=== PATIENT | male | born 1975 | race Caucasian/White ===

== ENCOUNTER 2025-04-04 01:19 | Inpatient (IN) | payer OTHER ==
[~2025-04-04] VITALS: Ht 170.2 cm; Wt 82.0 kg
[2025-04-04 01:57] LABS: PLATELET COUNT (AUTO) 357 K/uL (150-450); RED BLOOD CELL COUNT(AUTO) 4.42 MIL/uL (4.50-5.90); RED CELL DISTRIBUTION WIDTH 13.7 % (11.5-14.5); WHITE BLOOD COUNT (AUTO) 12.4 K/uL (4.5-11.0)
[2025-04-04 02:05] LABS: CALCIUM, TOTAL 8.4 mg/dL (8.8-10.5); CREATININE 1.06 mg/dL (0.60-1.30); GLOMERULAR FILTR. RATE CALC > 60 mL/min (>60); GLUCOSE,RANDOM 109 mg/dL (70-110); SODIUM SERUM 135 mmol/L (136-145); UREA NITROGEN, BLOOD 17 mg/dL (7-18)
[2025-04-04 02:12] LABS: ASPARTATE AMINOTRANSFERASE 12.0 U/L (15-37); CREATINE KINASE, TOTAL ONLY 23.0 U/L (39-308); TOTAL PROTEIN, SERUM 6.8 g/dL (6.4-8.2)
[2025-04-04 02:16] LABS: TROPONIN I-HIGH SENSITIVITY 10 ng/L (<76)
[2025-04-04] MEDS: SODIUM CHLORIDE 0.9% 1,000 ML IV ONE (02:17)
[2025-04-04] MEDS: KETOROLAC TROMETHAMINE 30 MG/ML VIAL IVP ONE (02:17)
[2025-04-04] MEDS ORDERED: IOHEXOL 350 MG/ML 100 ML VIAL ONE ×2 (05:34→06:22)
[2025-04-04] MEDS ORDERED: SODIUM CHLORIDE 0.9% 100 ML ONE ×2 (05:35→06:22)
[2025-04-04] MEDS: AMPICILLIN SODIUM/SULBACTAM NA 3 GM in SODIUM CHLORIDE 0.9% 100 ML IV ONE (06:47)
[2025-04-04 07:02] LABS: APPEARANCE,URINE CLEAR (CLEAR); GLUCOSE, URINE (UA) NEGATIVE (NEGATIVE); LEUKOCYTE ESTERASE ,URINE NEGATIVE (NEGATIVE); NITRATE,URINE NEGATIVE (NEGATIVE); OCCULT BLOOD,URINE NEGATIVE (NEGATIVE); SPECIFIC GRAVITIY, URINE 1.023 (1.003-1.030)
[2025-04-04 07:16] LABS: PH,URINE DRUG SCREEN 5.5 (5.0-8.0)
[2025-04-04 07:20] LABS: ALCOHOL, URINE DRUG SCREEN NEGATIVE (NEGATIVE); AMPHET/METH SCREEN,URINE POSITIVE (NEGATIVE); BARBITURATE SCREEN, URINE NEGATIVE (NEGATIVE); CANNABINOID SCREEN,URINE NEGATIVE (NEGATIVE); COCAINE SCREEN,URINE NEGATIVE (NEGATIVE); METHADONE SCREEN, URINE NEGATIVE (NEGATIVE)
[2025-04-04] MEDS ORDERED: LISI-894 PO (11:36)
[2025-04-04 11:47] VITALS: BP 160/94; PULSE 64; RESP 18; TEMP 98.1; O2SAT 98
[2025-04-04] MEDS ORDERED: ONDANSETRON HCL 4 MG/2 ML VIAL IVP PRN (13:00)
[2025-04-04] MEDS ORDERED: BISACODYL 10 MG RECTAL RECTAL SUPPOSITORY PR PRN (13:00)
[2025-04-04 15:24] VITALS: BP 154/103; PULSE 71; RESP 19; TEMP 98.4; O2SAT 98
[2025-04-04] MEDS: HEPARIN SODIUM,PORCINE 5,000 UNITS/ML VIAL SQ SCH (15:25)
[2025-04-04] MEDS: HYDROCODONE/ACETAMINOPHEN 5-325 MG TABLET PO PRN (15:28)
[2025-04-04] MEDS ORDERED: SODIUM CHLORIDE 0.9% 500 ML IV ONE (17:20)
[2025-04-04] MEDS ORDERED: BUPR-344 PO (17:58)
[2025-04-04] MEDS ORDERED: FLUO-418 PO (17:58)
[2025-04-04] MEDS ORDERED: AMPICILLIN SODIUM/SULBACTAM NA 1.5 GM in SODIUM CHLORIDE 0.9% 50 ML IV SCH (18:00)
[2025-04-04] MEDS ORDERED: TRAZ-252 PO (18:03)
[2025-04-04] MEDS: AMPICILLIN SODIUM/SULBACTAM NA 3 GM in SODIUM CHLORIDE 0.9% 100 ML IV SCH (18:20)
[2025-04-04 19:21] VITALS: BP 157/97; PULSE 71; RESP 19; TEMP 98.4; O2SAT 99
[2025-04-04] MEDS: DOCUSATE SODIUM 100 MG CAPSULE PO SCH (20:16)
[2025-04-04] MEDS: ZOLPIDEM TARTRATE 5 MG TABLET PO PRN (20:16)
[2025-04-04] MEDS: MAGNESIUM HYDROXIDE SUSPENSION 30 ML UDCUP PO PRN (20:16)
[2025-04-04 23:09] VITALS: BP 136/86; PULSE 79; RESP 19; TEMP 98.2; O2SAT 94
[2025-04-05 03:20] VITALS: BP 138/87; PULSE 74; RESP 18; TEMP 98.2; O2SAT 94
[2025-04-05 06:17] LABS: CALCIUM, TOTAL 8.5 mg/dL (8.8-10.5); CREATININE 0.90 mg/dL (0.60-1.30); GLOMERULAR FILTR. RATE CALC > 60 mL/min (>60); GLUCOSE,RANDOM 117 mg/dL (70-110); SODIUM SERUM 138 mmol/L (136-145); UREA NITROGEN, BLOOD 14 mg/dL (7-18)
[2025-04-05 06:45] LABS: PLATELET COUNT (AUTO) 322 K/uL (150-450); RED BLOOD CELL COUNT(AUTO) 4.23 MIL/uL (4.50-5.90); RED CELL DISTRIBUTION WIDTH 13.4 % (11.5-14.5); WHITE BLOOD COUNT (AUTO) 10.4 K/uL (4.5-11.0)
[2025-04-05] MEDS ORDERED: LIDOCAINE/PF 1% 30 ML VIAL ONE (08:00)
[2025-04-05 08:02] VITALS: BP 160/102; PULSE 71; RESP 18; TEMP 98; O2SAT 96
[2025-04-05] MEDS: PANTOPRAZOLE SODIUM 40 MG DR TABLET PO SCH (09:00)
[2025-04-05 11:30] VITALS: BP 135/96; PULSE 70; RESP 18; TEMP 98.2; O2SAT 98
[2025-04-05] MEDS: MORPHINE SULFATE 4 MG/ML SYRINGE IVP PRN (15:07)
[2025-04-05] MEDS ORDERED: GADOTERATE MEGLUMINE 10 MMOL/20 ML VIAL IVP ONE (15:19)
[2025-04-05 15:43] VITALS: BP 157/110; PULSE 81; RESP 24; TEMP 98.2; O2SAT 99
[2025-04-05 16:51] LABS: ABG BASE EXCESS -1.3 mmol/L (-2.0-3.0); ABG CARBOXYHEMOGLOBIN 0.4 % (0.5-1.5); ABG HCO3 24.2 mmol/L (21.0-28.0); ABG METHEMOGLOBIN 0.3 % (0.0-1.5); ABG OXYGEN CONTENT 18.6 mL/dL (15.0-23.0); ABG OXYGEN SATURATION 98.5 % (94.0-98.0); ABG OXYHEMOGLOBIN 97.8 % (94.0-98.0); ABG PCO2 31 mmHg (32.0-48.0); ABG PH 7.480 (7.350-7.450); ABG TOTAL HEMOGLOBIN 13.4 G/dL (13.5-17.5); ALLEN TEST, BLOOD GAS Positive; FLOW, BLOOD GAS 0.00 L/min (0.00-15.00); FRACTIONATED INSPIRED OXYGEN 21.0 % (21-100.0); PO2, ARTERIAL BG 115.5 mmHg (83.0-108.0); SITE, BLOOD GAS RT RADIAL; SOURCE, BLOOD GAS ARTERIAL; TEMPERATURE, FAHRENHEIT, BG 98.2 FAHREN (96.0-98.6)
[2025-04-05 16:52] LABS: O2 DEVICE,BLOOD GAS ROOM AIR (ROOM AIR)
[2025-04-05 20:13] VITALS: BP 158/106; PULSE 95; RESP 20; TEMP 99.7; O2SAT 97
[2025-04-06] VITALS (8 sets, daily range): BP systolic 145–155; BP diastolic 96–114; PULSE 75–101; RESP 18–20; TEMP 98.4–99.5; O2SAT 94–98
[2025-04-06] MEDS ORDERED: 0.9% SODIUM CHLORIDE 5 ML NEB SOLUTION NEB ONE (14:33)
[2025-04-06] MEDS: ALBUTEROL SULFATE 2.5 MG/0.5 ML NEB SOLUTION NEB PRN (14:36)
[2025-04-06] MEDS: MORPHINE SULFATE 4 MG/ML SYRINGE IVP PRN (18:22)
[2025-04-07] VITALS (11 sets, daily range): BP systolic 122–146; BP diastolic 82–97; PULSE 77–91; RESP 18–20; TEMP 98.4–100.6; O2SAT 93–99
[2025-04-07] MEDS: ACETAMINOPHEN 325 MG TABLET PO PRN (00:49)
[2025-04-07 06:51] LABS: PLATELET COUNT (AUTO) 340 K/uL (150-450); RED BLOOD CELL COUNT(AUTO) 4.43 MIL/uL (4.50-5.90); RED CELL DISTRIBUTION WIDTH 13.6 % (11.5-14.5); WHITE BLOOD COUNT (AUTO) 19.7 K/uL (4.5-11.0)
[2025-04-07 07:00] LABS: CALCIUM, TOTAL 8.9 mg/dL (8.8-10.5); CREATININE 0.93 mg/dL (0.60-1.30); GLOMERULAR FILTR. RATE CALC > 60 mL/min (>60); GLUCOSE,RANDOM 111 mg/dL (70-110); SODIUM SERUM 134 mmol/L (136-145); UREA NITROGEN, BLOOD 10 mg/dL (7-18)
[2025-04-07 07:13] LABS: ASPARTATE AMINOTRANSFERASE 31 U/L (15-37); TOTAL PROTEIN, SERUM 6.8 g/dL (6.4-8.2)
[2025-04-07 10:07] LABS: S PNEUMO SOURCE Urine; STREP PNEUMONIAE AG URINE Negative (Negative)
[2025-04-07 11:07] LABS: LEGIONELLA PNEUMO AG URINE Negative (Negative)
[2025-04-07] MEDS ORDERED: SODIUM CHLORIDE 0.9% 500 ML IV ONE (23:08)
[2025-04-08] VITALS (12 sets, daily range): BP systolic 131–150; BP diastolic 89–101; PULSE 74–96; RESP 17–20; TEMP 98.4–100; O2SAT 95–99
[2025-04-08 06:36] LABS: PLATELET COUNT (AUTO) 349 K/uL (150-450); RED BLOOD CELL COUNT(AUTO) 4.13 MIL/uL (4.50-5.90); RED CELL DISTRIBUTION WIDTH 13.7 % (11.5-14.5); WHITE BLOOD COUNT (AUTO) 16.2 K/uL (4.5-11.0)
[2025-04-09] VITALS (11 sets, daily range): BP systolic 132–157; BP diastolic 93–101; PULSE 73–86; RESP 18–22; TEMP 97.7–100.6; O2SAT 95–99
[2025-04-09 06:33] LABS: PLATELET COUNT (AUTO) 383 K/uL (150-450); RED BLOOD CELL COUNT(AUTO) 3.80 MIL/uL (4.50-5.90); RED CELL DISTRIBUTION WIDTH 13.7 % (11.5-14.5); WHITE BLOOD COUNT (AUTO) 12.9 K/uL (4.5-11.0)
[2025-04-09] MEDS: LINEZOLID 600 MG TABLET PO SCH (12:37)
[2025-04-10] VITALS (8 sets, daily range): BP systolic 155–157; BP diastolic 95–99; PULSE 74–92; RESP 18–20; TEMP 99.1–99.7; O2SAT 95–99
[2025-04-10] MEDS: GABAPENTIN 100 MG CAPSULE PO SCH (13:10)
[2025-04-11] VITALS (9 sets, daily range): BP systolic 140–154; BP diastolic 98–106; PULSE 72–97; RESP 18–22; TEMP 97.9–99.9; O2SAT 94–99
[2025-04-11 07:01] LABS: PLATELET COUNT (AUTO) 451 K/uL (150-450); RED BLOOD CELL COUNT(AUTO) 4.00 MIL/uL (4.50-5.90); RED CELL DISTRIBUTION WIDTH 14.0 % (11.5-14.5); WHITE BLOOD COUNT (AUTO) 13.8 K/uL (4.5-11.0)
[2025-04-11 07:22] LABS: ASPARTATE AMINOTRANSFERASE 25 U/L (15-37); CALCIUM, TOTAL 9.0 mg/dL (8.8-10.5); CREATININE 0.89 mg/dL (0.60-1.30); GLOMERULAR FILTR. RATE CALC > 60 mL/min (>60); GLUCOSE,RANDOM 105 mg/dL (70-110); SODIUM SERUM 137 mmol/L (136-145); TOTAL PROTEIN, SERUM 6.6 g/dL (6.4-8.2); UREA NITROGEN, BLOOD 9 mg/dL (7-18)
[2025-04-11 07:44] LABS: LACTATE DEHYDROGENASE 217 U/L (85-227)
[2025-04-12 03:46] VITALS: BP 144/99; PULSE 79; RESP 18; TEMP 98.6; O2SAT 95
[2025-04-12 06:45] LABS: PLATELET COUNT (AUTO) 526 K/uL (150-450); RED BLOOD CELL COUNT(AUTO) 4.08 MIL/uL (4.50-5.90); RED CELL DISTRIBUTION WIDTH 14.0 % (11.5-14.5); WHITE BLOOD COUNT (AUTO) 16.2 K/uL (4.5-11.0)
[2025-04-12 08:30] VITALS: BP 155/94; PULSE 78; RESP 18; TEMP 98.6; O2SAT 96
[2025-04-12 09:00] VITALS: PULSE 77; RESP 18; O2SAT 94
[2025-04-12 09:11] VITALS: PULSE 75; RESP 18; O2SAT 95
[2025-04-12] MEDS ORDERED: IOHEXOL 350 MG/ML 100 ML VIAL ONE (09:46)
[2025-04-12] MEDS ORDERED: 0.9% SODIUM CHLORIDE 10 ML SYRINGE IVP ONE (09:46)
[2025-04-12] MEDS ORDERED: SODIUM CHLORIDE 0.9% 100 ML ONE (09:47)
[2025-04-12] MEDS ORDERED: FentaNYL CITRATE PF 100 MCG/2 ML VIAL ONE (09:56)
[2025-04-12] MEDS ORDERED: LIDOCAINE/PF 1% 30 ML VIAL ONE (09:57)
[2025-04-12] MEDS ORDERED: MIDAZOLAM HCL 2 MG/2 ML VIAL ONE (09:57)
[2025-04-12] MEDS: LIDOCAINE 1% 30 ML/SOD BICARB 8.4% 4 ML SQ ONE (11:51)
[2025-04-12] MEDS: FentaNYL CITRATE PF 100 MCG/2 ML VIAL IVP ONE (11:52)
[2025-04-12] MEDS: MIDAZOLAM HCL 2 MG/2 ML VIAL IVP ONE (11:52)
[2025-04-12 12:06] LABS: SPECIMENTYPE,BODY FLUID THORAV
[2025-04-12] MEDS ORDERED: PALI3TAB14 PO (15:17)
[2025-04-12 16:09] VITALS: BP 126/86; PULSE 82; RESP 18; TEMP 99.3; O2SAT 100
[2025-04-12 17:44] LABS: APPEARANCE,UNSPUN,BODY FLUID TURBID (CLEAR)
[2025-04-12 17:50] LABS: APPEARANCE,SPUN,BODY FLUID CLEAR (CLEAR)
[2025-04-12 17:51] LABS: BASOPHILS,BODY FLUID 0 %; BODY FLUID RBC 470.0 /cu. mm.; COLOR,BODY FLUID DARK YELLOW (LT YELLOW); EOSINOPHILS,BF (ANAL) 0 %; LYMPHOCYTES,BODY FLUID 75 %; MONOCYTES,BODY FLUID 0 %; NEUTROPHILS,BODY FLUID 25 %; PH, BODY FLUID 8.0; TOTAL VOLUME,BODY FLUID 20 mL; WBC, BODY FLUID 60 /cu. mm.
[2025-04-12 20:13] VITALS: BP 140/86; PULSE 81; RESP 18; TEMP 99.3; O2SAT 97
[2025-04-13 03:09] VITALS: BP 144/95; PULSE 83; RESP 16; TEMP 99.3; O2SAT 95
[2025-04-13 07:04] VITALS: PULSE 88; RESP 18; O2SAT 96
[2025-04-13 07:21] LABS: PLATELET COUNT (AUTO) 487 K/uL (150-450); RED BLOOD CELL COUNT(AUTO) 3.98 MIL/uL (4.50-5.90); RED CELL DISTRIBUTION WIDTH 14.0 % (11.5-14.5); WHITE BLOOD COUNT (AUTO) 15.4 K/uL (4.5-11.0)
[2025-04-13 07:25] VITALS: BP 127/86; PULSE 72; RESP 18; TEMP 98.6; O2SAT 96
[2025-04-13 07:27] LABS: ASPARTATE AMINOTRANSFERASE 33 U/L (15-37); CALCIUM, TOTAL 8.4 mg/dL (8.8-10.5); CREATININE 0.96 mg/dL (0.60-1.30); GLOMERULAR FILTR. RATE CALC > 60 mL/min (>60); GLUCOSE,RANDOM 134 mg/dL (70-110); SODIUM SERUM 138 mmol/L (136-145); TOTAL PROTEIN, SERUM 6.3 g/dL (6.4-8.2); UREA NITROGEN, BLOOD 7 mg/dL (7-18)
[2025-04-13 14:07] LABS: GLUCOSE, BODY FLUID,REF 94 mg/dL; LDH,BODY FLUID,REF 377 IU/L
[2025-04-13 15:18] VITALS: BP 142/95; PULSE 82; RESP 18; TEMP 98.1; O2SAT 99
[2025-04-13 20:15] VITALS: BP 140/95; PULSE 79; RESP 18; TEMP 98.6; O2SAT 99
[2025-04-13 20:17] VITALS: PULSE 75; RESP 18; O2SAT 99
[2025-04-14] VITALS (7 sets, daily range): BP systolic 128–156; BP diastolic 85–98; PULSE 68–80; RESP 18–20; TEMP 98.1–98.8; O2SAT 96–98
[2025-04-14 07:26] LABS: PLATELET COUNT (AUTO) 568 K/uL (150-450); RED BLOOD CELL COUNT(AUTO) 4.04 MIL/uL (4.50-5.90); RED CELL DISTRIBUTION WIDTH 14.0 % (11.5-14.5); WHITE BLOOD COUNT (AUTO) 14.8 K/uL (4.5-11.0)
[2025-04-14 07:55] LABS: CALCIUM, TOTAL 8.5 mg/dL (8.8-10.5); CREATININE 0.75 mg/dL (0.60-1.30); GLOMERULAR FILTR. RATE CALC > 60 mL/min (>60); GLUCOSE,RANDOM 99 mg/dL (70-110); SODIUM SERUM 136 mmol/L (136-145); UREA NITROGEN, BLOOD 11 mg/dL (7-18)
[2025-04-14] MEDS ORDERED: BuPROPion HCL XL 150 MG ER TABLET PO SCH (09:00)
[2025-04-14] MEDS: ALTEPLASE 2 MG VIAL/STERILE WATER IVCATH ONE (12:15)
[2025-04-14] MEDS ORDERED: SODIUM CHLORIDE 0.9% 1,000 ML ONE (12:55)
[2025-04-15 03:19] VITALS: BP 142/88; PULSE 69; RESP 18; TEMP 98.6; O2SAT 98
[2025-04-15 04:00] VITALS: BP 141/94; PULSE 61; RESP 18; TEMP 98.1; O2SAT 96
[2025-04-15 09:53] VITALS: BP 141/95; PULSE 76; RESP 18; TEMP 98.3; O2SAT 96
[2025-04-15 16:40] VITALS: BP 139/90; PULSE 68; RESP 18; TEMP 98.4; O2SAT 97
[2025-04-15 19:37] VITALS: BP 126/84; PULSE 72; RESP 18; TEMP 98.6; O2SAT 98
[2025-04-16 06:12] VITALS: BP 123/74; PULSE 72; RESP 18; TEMP 98.6; O2SAT 98
[2025-04-16 06:46] LABS: PLATELET COUNT (AUTO) 582 K/uL (150-450); RED BLOOD CELL COUNT(AUTO) 4.34 MIL/uL (4.50-5.90); RED CELL DISTRIBUTION WIDTH 13.9 % (11.5-14.5); WHITE BLOOD COUNT (AUTO) 12.1 K/uL (4.5-11.0)
[2025-04-16 06:59] LABS: CALCIUM, TOTAL 8.8 mg/dL (8.8-10.5); CREATININE 1.00 mg/dL (0.60-1.30); GLOMERULAR FILTR. RATE CALC > 60 mL/min (>60); GLUCOSE,RANDOM 95 mg/dL (70-110); SODIUM SERUM 134 mmol/L (136-145); UREA NITROGEN, BLOOD 11 mg/dL (7-18)
[2025-04-16 07:43] VITALS: BP 131/90; PULSE 89; RESP 18; TEMP 98.4; O2SAT 18
[2025-04-16 15:28] VITALS: BP 121/86; PULSE 70; RESP 18; TEMP 97.9; O2SAT 100
[2025-04-16 21:21] VITALS: BP 133/86; PULSE 76; RESP 18; TEMP 98.8; O2SAT 97
[2025-04-17 05:50] VITALS: BP 141/96; PULSE 71; RESP 18; TEMP 98.1; O2SAT 97
[2025-04-17 06:59] LABS: PLATELET COUNT (AUTO) 562 K/uL (150-450); RED BLOOD CELL COUNT(AUTO) 4.08 MIL/uL (4.50-5.90); RED CELL DISTRIBUTION WIDTH 13.9 % (11.5-14.5); WHITE BLOOD COUNT (AUTO) 11.9 K/uL (4.5-11.0)
[2025-04-17 08:11] VITALS: BP 152/94; PULSE 67; RESP 18; TEMP 98.4; O2SAT 98
[2025-04-17 15:25] VITALS: BP 126/84; PULSE 94; RESP 20; TEMP 98.4; O2SAT 97
[2025-04-17 20:00] VITALS: BP 118/74; PULSE 85; RESP 18; TEMP 98.6; O2SAT 97
[2025-04-18 04:22] VITALS: BP 144/96; PULSE 86; RESP 19; TEMP 98.6; O2SAT 99
[2025-04-18 08:40] VITALS: BP 134/89; PULSE 72; RESP 18; TEMP 97.9; O2SAT 98
[2025-04-18] MEDS ORDERED: DEXAMETHASONE SOD PHOS 4 MG/ML VIAL ONE (12:00)
[2025-04-18] MEDS ORDERED: SUGAMMADEX SODIUM 200 MG/2 ML VIAL IVP ONE (12:00)
[2025-04-18] MEDS ORDERED: LIDOCAINE/PF 2% 5 ML VIAL ONE (12:00)
[2025-04-18] MEDS ORDERED: FentaNYL CITRATE PF 100 MCG/2 ML VIAL ONE ×3 (12:00→19:36)
[2025-04-18] MEDS ORDERED: ONDANSETRON HCL 4 MG/2 ML VIAL ONE (12:00)
[2025-04-18] MEDS ORDERED: MIDAZOLAM HCL 2 MG/2 ML VIAL ONE ×2 (12:00)
[2025-04-18] MEDS ORDERED: HYDROmorphone 2 MG/ML 20 ML VIAL IV ONE (12:00)
[2025-04-18] MEDS ORDERED: PHENYLEPHRINE HCL IN 0.9% NACL 400 MCG/10 ML SYRINGE IVP ONE (12:00)
[2025-04-18] MEDS ORDERED: ROCURONIUM BROMIDE 10 MG/ML 5 ML VIAL ONE (12:00)
[2025-04-18] MEDS ORDERED: PROPOFOL 1% 20 ML VIAL IVP ONE (12:00)
[2025-04-18] MEDS ORDERED: RINGERS SOLUTION,LACTATED 1,000 ML IV ONE (12:54)
[2025-04-18] MEDS ORDERED: SODIUM CHLORIDE 0.9% 1,000 ML ONE (12:54)
[2025-04-18] MEDS ORDERED: BUPR-50 PO (13:14)
[2025-04-18] MEDS ORDERED: SODIUM CHLORIDE 0.9% 0 ML ONE (14:29)
[2025-04-18 14:46] LABS: ABG A-A DIFF O2 30.8 mmHg (10-20.0); ABG BASE EXCESS 3.5 mmol/L (-2.0-3.0); ABG CARBOXYHEMOGLOBIN 0.1 % (0.5-1.5); ABG HCO3 27.4 mmol/L (21.0-28.0); ABG METHEMOGLOBIN 0.3 % (0.0-1.5); ABG OXYGEN CONTENT 16.2 mL/dL (15.0-23.0); ABG OXYGEN SATURATION 95.3 % (94.0-98.0); ABG OXYHEMOGLOBIN 94.9 % (94.0-98.0); ABG PCO2 39 mmHg (32.0-48.0); ABG PH 7.465 (7.350-7.450); ABG TOTAL HEMOGLOBIN 12.1 G/dL (13.5-17.5); FRACTIONATED INSPIRED OXYGEN 21.0 % (21-100.0); O2 DEVICE,BLOOD GAS ROOM AIR (ROOM AIR); PO2, ARTERIAL BG 72.6 mmHg (83.0-108.0); SITE, BLOOD GAS ARTERIAL LINE; SOURCE, BLOOD GAS ARTERIAL; TEMPERATURE, FAHRENHEIT, BG 98.6 FAHREN (96.0-98.6)
[2025-04-18] MEDS: ETHYL ALCOHOL 62% ANTISEPTIC NASAL SANITIZER 0.6 ML AMPUL NASAL ONE (14:56)
[2025-04-18] MEDS: CHLORHEXIDINE GLUCONATE 2% TOWELETTE [2'S/6'S] TP ONE (14:56)
[2025-04-18] MEDS: BUPIVACAINE HCL/PF 0.25% 30 ML VIAL ONE (19:00)
[2025-04-18] MEDS: FentaNYL CITRATE PF 100 MCG/2 ML VIAL IVP PRN (19:38)
[2025-04-18 20:36] VITALS: BP 142/91; PULSE 72; RESP 19; TEMP 98.6; O2SAT 97
[2025-04-18 22:30] VITALS: PULSE 81; RESP 18; O2SAT 98
[2025-04-18] MEDS: OXYGEN THERAPY IH SCH (22:36)
[2025-04-18 22:45] VITALS: PULSE 84; RESP 18; O2SAT 99
[2025-04-19] VITALS (7 sets, daily range): BP systolic 105–129; BP diastolic 70–88; PULSE 69–83; RESP 17–19; TEMP 98–98.6; O2SAT 96–100
[2025-04-19] MEDS ORDERED: SODIUM CHLORIDE 0.9% 500 ML IV ONE (00:40)
[2025-04-19 06:18] LABS: PLATELET COUNT (AUTO) 425 K/uL (150-450); RED BLOOD CELL COUNT(AUTO) 4.19 MIL/uL (4.50-5.90); RED CELL DISTRIBUTION WIDTH 14.1 % (11.5-14.5); WHITE BLOOD COUNT (AUTO) 12.4 K/uL (4.5-11.0)
[2025-04-19 06:52] LABS: ASPARTATE AMINOTRANSFERASE 58 U/L (15-37); CALCIUM, TOTAL 8.9 mg/dL (8.8-10.5); CREATININE 0.92 mg/dL (0.60-1.30); GLOMERULAR FILTR. RATE CALC > 60 mL/min (>60); GLUCOSE,RANDOM 130 mg/dL (70-110); SODIUM SERUM 136 mmol/L (136-145); TOTAL PROTEIN, SERUM 7.6 g/dL (6.4-8.2); UREA NITROGEN, BLOOD 19 mg/dL (7-18)
[2025-04-20 02:11] VITALS: BP 123/78; PULSE 87; RESP 20; O2SAT 98
[2025-04-20 03:50] VITALS: BP 122/86; PULSE 84; RESP 19; TEMP 98.4; O2SAT 98
[2025-04-20 07:46] VITALS: BP 120/81; PULSE 88; RESP 18; TEMP 99; O2SAT 97
[2025-04-20 11:22] VITALS: BP 111/70; PULSE 86; RESP 18; TEMP 98.6; O2SAT 96
[2025-04-20 13:56] LABS: CALCIUM, TOTAL 8.3 mg/dL (8.8-10.5); CREATININE 1.05 mg/dL (0.60-1.30); GLOMERULAR FILTR. RATE CALC > 60 mL/min (>60); GLUCOSE,RANDOM 112 mg/dL (70-110); SODIUM SERUM 138 mmol/L (136-145); UREA NITROGEN, BLOOD 17 mg/dL (7-18)
[2025-04-20] MEDS: LIDOCAINE 5% TRANSDERMAL PATCH TD SCH (14:00)
[2025-04-20 16:04] VITALS: BP 121/84; PULSE 76; RESP 18; TEMP 98.2; O2SAT 98
[2025-04-20 19:40] VITALS: BP 124/81; PULSE 97; RESP 18; TEMP 99; O2SAT 97
[2025-04-20] MEDS: -LIDODERM PATCH NOTE- MISC SCH (21:17)
[2025-04-21 00:10] VITALS: BP 125/83; PULSE 99; RESP 17; TEMP 99; O2SAT 98
[2025-04-21 04:20] VITALS: BP 124/83; PULSE 86; RESP 18; TEMP 98.4; O2SAT 98
[2025-04-21 05:57] LABS: PLATELET COUNT (AUTO) 564 K/uL (150-450); RED BLOOD CELL COUNT(AUTO) 3.65 MIL/uL (4.50-5.90); RED CELL DISTRIBUTION WIDTH 14.3 % (11.5-14.5); WHITE BLOOD COUNT (AUTO) 10.0 K/uL (4.5-11.0)
[2025-04-21 06:24] LABS: CALCIUM, TOTAL 8.4 mg/dL (8.8-10.5); CREATININE 0.85 mg/dL (0.60-1.30); GLOMERULAR FILTR. RATE CALC > 60 mL/min (>60); GLUCOSE,RANDOM 98 mg/dL (70-110); SODIUM SERUM 139 mmol/L (136-145); UREA NITROGEN, BLOOD 16 mg/dL (7-18)
[2025-04-21 08:45] VITALS: BP 120/74; PULSE 92; RESP 18; TEMP 98.3; O2SAT 97
[2025-04-21 12:00] VITALS: BP 132/87; PULSE 72; RESP 18; TEMP 98; O2SAT 96
[2025-04-21] MEDS ORDERED: LIDO700A30 TD (12:07)
[2025-04-21] MEDS ORDERED: ACET-2123 PO (12:12)
[2025-04-21] MEDS ORDERED: KETO10TA2 PO (12:12)
[2025-04-21] MEDS ORDERED: LACT1TAB14 PO (12:32)
[2025-04-21] MEDS ORDERED: AMOX-457 PO (12:32)
[2025-04-21 16:05] VITALS: BP 125/80; PULSE 77; RESP 18; TEMP 98.8; O2SAT 97
== END 2025-04-21 18:00 | disposition home or self-care (01) | DRG 710 ==
LOC: EMS 01:19 → EDBEDREQ 09:35 → EDH 09:58 → 5N 11:39 → 4E 04-07 22:39 → 5S 04-18 20:34
PROVIDERS: ADMIT Internal Medicine; ATTEND Internal Medicine
PROC: 0W9930Z Drainage of Right Pleural Cavity with Drainage Device, Percutaneous Approach (ICD-10-PCS; principal; 2025-04-12)
PROC: 3E0L317 Introduction of Other Thrombolytic into Pleural Cavity, Percutaneous Approach (ICD-10-PCS; 2025-04-14)
PROC: 0BNK4ZZ Release Right Lung, Percutaneous Endoscopic Approach (ICD-10-PCS; 2025-04-18)
DX: A41.9 Sepsis, unspecified organism (principal); J85.0 Gangrene and necrosis of lung; J91.8 Pleural effusion in other conditions classified elsewhere; J18.9 Pneumonia, unspecified organism; J44.0 Chronic obstructive pulmonary disease with (acute) lower respiratory infection; I50.30 Unspecified diastolic (congestive) heart failure; D64.9 Anemia, unspecified; F10.10 Alcohol abuse, uncomplicated; F15.10 Other stimulant abuse, uncomplicated; F33.2 Major depressive disorder, recurrent severe without psychotic features; I11.0 Hypertensive heart disease with heart failure; Z86.73 Personal history of transient ischemic attack (TIA), and cerebral infarction without residual deficits
CPT/HCPCS: 71045; 71250; 71260; 72157; 72158; 74177; 75989; 80048; 80053; 80076; 80307; 81003; 82550; 82805; 82945; 83615; 83690; 83735; 83880; 83986; 84145; 84157; 84484; 85025; 85610; 87015; 87040; 87070; 87075; 87081; 87101; 87205; 87206; 87252; 87449; 87899; 88108; 88305; 89051; 93005; 93306; 94640; 94668; 94669; 94760; 99285; G0378; G0480; J0295; J1100; J1644; J1885; J2250; J2270; J2405; J2704; J2997; J3010; J3490; J7030; J7040; J7050; J7120; 36415-L1; 36415-TC; J7613; Z7610